=== PATIENT | male | born 1980 | race African-American/Black ===

== ENCOUNTER 2017-02-08 14:37 | Emergency (ER) | payer SELFPAY ==
[2017-02-08] MEDS ORDERED: LORATADINE 10 MG TABLET PO ONE (16:28)
[2017-02-08] MEDS ORDERED: GUAIFENESIN 600 MG TABLET.SA PO ONE (16:28)
[2017-02-08] MEDS ORDERED: PSEUDOEPHEDRINE HCL 30 MG TABLET PO ONE (16:28)
[2017-02-08] MEDS ORDERED: IBUPROFEN 600 MG TABLET PO ONE (16:28)
--- NOTE | 2017-02-08 16:28 | ER Document Report ---
ED Respiratory Problem - General Chief Complaint: Cold Symptoms Stated Complaint: COUGH,FEVER Time Seen by Provider: 02/08/17 16:18 Mode of Arrival: Ambulatory Information source: Patient Notes: 36-year-old. Male presents to ED for complaint of cough cold symptoms since Sunday. He states he went to [place] to see his girlfriend and she and her daughter both had cough and colds. That he flew back home and went to work yesterday. TRAVEL OUTSIDE OF THE [place] IN LAST 30 DAYS: No - HPI Patient complains to provider of: Cough Onset: Other - Sunday Duration: Continuous Initiating Event: URI Quality of pain: Achy - Related Data Allergies/Adverse Reactions: No Known Allergies Allergy (Verified 02/08/17 14:59) Home Medications: Current Home Medications No Home Medications 02/08/17 [History] Past Medical History - General Information source: Patient - Social History Smoking Status: Current Every Day Smoker Cigarette use (# per day): Yes Chew tobacco use (# tins/day): No Smoking Education Provided: Yes - less than 2 min Frequency of alcohol use: Occasional Drug Abuse: None Family History: None Patient has suicidal ideation: No Patient has homicidal ideation: No - Past Medical History Cardiac Medical History: Reports: None Pulmonary Medical History: Reports: None EENT Medical History: Reports: None Neurological Medical History: Reports: None Endocrine Medical History: Reports: None Renal/ Medical History: Reports: None Malignancy Medical History: Reports None GI Medical History: Reports: None Musculoskeltal Medical History: Reports None Skin Medical History: Reports None Psychiatric Medical History: Reports: Hx Depression Traumatic Medical History: Reports: None Infectious Medical History: Reports: None Past Surgical History: Reports: Hx Abdominal Surgery - Immunizations Hx Diphtheria, Pertussis, Tetanus Vaccination: No Review of Systems - Review of Systems Constitutional: No symptoms reported EENT: Nose discharge, Sinus discharge, Throat pain Cardiovascular: No symptoms reported Respiratory: No symptoms reported Gastrointestinal: No symptoms reported Genitourinary: No symptoms reported Male Genitourinary: No symptoms reported Musculoskeletal: No symptoms reported Skin: No symptoms reported Hematologic/Lymphatic: No symptoms reported Neurological/Psychological: No symptoms reported Physical Exam - Vital signs Vitals: Temp Pulse Resp BP Pulse Ox 98.4 F 87 16 130/95 H 97 02/08/17 14:57 02/08/17 14:57 02/08/17 14:57 02/08/17 14:57 02/08/17 14:57 Interpretation: Normal - General General appearance: Appears well, Alert - HEENT Head: Normocephalic, Atraumatic Eyes: Normal Pupils: PERRL Ears: Normal External canal: Normal Tympanic membrane: Normal Sinus: Normal Nasal: Purulent discharge, Swelling Mouth/Lips: Normal Pharynx: Post nasal drainage Neck: Normal - Respiratory Respiratory status: No respiratory distress Chest status: Nontender Breath sounds: Normal Chest palpation: Normal - Cardiovascular Rhythm: Regular Heart sounds: Normal auscultation Murmur: No - Abdominal Inspection: Normal Distension: No distension Bowel sounds: Normal Tenderness: Nontender Organomegaly: No organomegaly - Back Back: Normal, Nontender - Extremities General upper extremity: Normal inspection, Nontender, Normal color, Normal ROM , Normal temperature General lower extremity: Normal inspection, Nontender, Normal color, Normal ROM , Normal temperature, Normal weight bearing. No: Meredith's sign - Neurological Neuro grossly intact: Yes Cognition: Normal Orientation: AAOx4 Lito Coma Scale Eye Opening: Spontaneous Lito Coma Scale Verbal: Oriented Lito Coma Scale Motor: Obeys Commands Lito Coma Scale Total: 15 Speech: Normal Motor strength normal: LUE, RUE, LLE, RLE Sensory: Normal - Psychological Associated symptoms: Normal affect, Normal mood - Skin Skin Temperature: Warm Skin Moisture: Dry Skin Color: Normal Course - Re-evaluation Re-evalutation: 02/08/17 20:49 Presents with upper respiratory infection patient was discharged home with Sudafed Mucinex Claritin and ibuprofen. Patient instructed to request these from his pharmacist [id number]. - Vital Signs Vital signs: Temp Pulse Resp BP Pulse Ox 98.0 F 81 18 138/83 H 98 02/08/17 16:44 02/08/17 16:44 02/08/17 16:44 02/08/17 16:44 02/08/17 16:44 Discharge - Discharge Clinical Impression: URI (upper respiratory infection) Qualifiers: URI type: unspecified URI Qualified Code(s): J06.9 - Acute upper respiratory infection, unspecified Condition: Stable Disposition: HOME, SELF-CARE Instructions: Family Physicians / Practices Additional Instructions: UPPER RESPIRATORY ILLNESS: You have a viral infection of the respiratory passages -- a "cold." This common infection causes nasal congestion, drainage, and often sore throat and cough. It is highly contagious. The disease usually lasts about 10 to 14 days. There is no "cure" for the viral infection -- it must run its course. If there is a complication, such as bacterial infection in the nose, sinuses, middle ear, or bronchial tubes, antibiotics may be required. The antibiotics won't affect the virus. Drink plenty of fluids. A humidifier may help. An expectorant medication or decongestant may make you more comfortable. Use acetaminophen or ibuprofen for fever or aches. See the doctor if fever persists over two days, if there is any significant worsening of your symptoms, or if you simply fail to improve as expected. You have been given Claritin and Sudafed Mucinex and ibuprofen in the emergency room. These are good medicines. Take for your viral symptoms. Antiemetics did not help a virus. He can also use some salt and soda solution for gargling every 3-4 hours. Salt and soda solution 1 quart of water 1 tablespoon of salt 1 teaspoon of baking soda Mixed 3 ingredients together and boil for 1 minute Placed in a covered quart jar Use 1/2 ounce of cold solution to gargle 3 times a day Flonase nasal spray could also help your cough and cold symptoms DECONGESTANT MEDICATION: A decongestant medicine has been suggested. Often this medicine is combined in the same tablet with an antihistamine or expectorant. This type of medicine is helpful in treating a bad cold or sinus condition, as well as in treatment of the nasal congestion of hay fever. It is not of much benefit for lung infections. Decongestant medicines are related to stimulants. They can cause an increase in blood pressure and heart rate. Persons with heart disease and high blood pressure should not take decongestants without discussing this with the physician. If you develop palpitations, chest pain, headache, or tremors, stop the medicine and consult your physician. COUGH-SUPPRESSANT & EXPECTORANT MEDICATION: You are to use a cough medication as needed for relief of symptoms. This medicine is a combination of an expectorant (to make the mucous thinner and more easily "coughed up") and a cough suppressant (to reduce the frequency of coughing). The cough-suppressant medicine is related to narcotics. You may experience mild nausea and sleepiness. Some patients who are very sensitive to narcotics may have stomach pain from this medicine. Taking the medicine with food reduces these side effects. Do not drive or work with machinery until you know how this medicine affects you. The expectorant should have no side effects. Iodine-containing expectorants (such as organidin) should not be taken by persons with active thyroid disease unless approved by your doctor. Call the doctor if you develop shortness of breath, hives, rash, itching, lightheadedness, or severe nausea and vomiting. USE OF ACETAMINOPHEN (Tylenol): Acetaminophen may be taken for pain relief or fever control. It's much safer than aspirin, offering a wider range of "safe" dosages. It is safe during . Some brand names are Tylenol, Panadol, Datril, Anacin 3, Tempra, and Liquiprin. Acetaminophen can be repeated every four hours. The following are maximum recommended dosages: >89 pounds or adults 650 mg to 900 mg Acetaminophen can be repeated every four hours. Maximum dose not to exceed 4000 mg a day. SMOKING: If you smoke, you should stop smoking. The tar and chemicals in cigarette smoke are harmful. Smoking has been shown to cause: emphysema chronic bronchitis lung cancer mouth and throat cancer stomach and pancreas cancer premature aging defects In addition, smoking increases ear and lung infections in children of smokers. FOLLOW-UP CARE: If you have been referred to a physician for follow-up care, call the physician s office for an appointment as you were instructed or within the next two days. If you experience worsening or a significant change in your symptoms, notify the physician immediately or return to the Emergency Department at any time for re-evaluation. Forms: Elevated Blood Pressure, Smoking Cessation Education, Return to Work
[2017-02-08 16:45] VITALS: BP 138/83
== END 2017-02-08 16:46 | disposition home or self-care (01) ==
LOC: ER 14:37
DX: J06.9 Acute upper respiratory infection, unspecified (principal); R05 Cough; J34.89 Other specified disorders of nose and nasal sinuses; F17.210 Nicotine dependence, cigarettes, uncomplicated; Z71.6 Tobacco abuse counseling
CPT/HCPCS: 99283

== ENCOUNTER 2017-02-28 01:47 | Emergency (ER) | payer SELFPAY ==
[2017-02-28] MEDS ORDERED: PENICILLIN V POTASSIUM 500 MG TABLET PO ONE (04:21)
--- NOTE | 2017-02-28 04:23 | ER Document Report ---
ED General - General Chief Complaint: Toothache Stated Complaint: TOOTHACHE Time Seen by Provider: 02/28/17 03:48 Notes: Patient is a 36-year-old male who presents with complaint of toothache. Patient has pain over the right lower premolar. Says his tooth has been broken for a long time medication will get flared up and have infection. He says that he does not an appointment with the dentist as of yet but knows from past experiences that he has been on antibiotics for seeing the dentist so that they will actually do procedure to fix his tooth. He request antibiotics. He denies any significant facial swelling. No difficulty swallowing or breathing. No fevers. No other complaints at this time. TRAVEL OUTSIDE OF THE [place] IN LAST 30 DAYS: No - Related Data Allergies/Adverse Reactions: No Known Allergies Allergy (Verified 02/08/17 14:59) Past Medical History - Social History Smoking Status: Current Every Day Smoker Frequency of alcohol use: Social Drug Abuse: None Family History: None Patient has suicidal ideation: No Patient has homicidal ideation: No Renal/ Medical History: Denies: Hx Peritoneal Dialysis Psychiatric Medical History: Reports: Hx Depression Past Surgical History: Reports: Hx Abdominal Surgery - Immunizations Hx Diphtheria, Pertussis, Tetanus Vaccination: No Review of Systems - Review of Systems Notes: My Normal Review Basic REVIEW OF SYSTEMS: CONSTITUTIONAL : Denies fever, chills, or sweats. Denies recent illness. EENT: Tooth pain right lower jaw. RESPIRATORY: Denies cough, cold, or chest congestion. Denies shortness of breath, difficulty breathing, or wheezing. GASTROINTESTINAL: Denies abdominal pain. Denies nausea, vomiting, or diarrhea. Denies constipation. Last BM: MUSCULOSKELETAL: Denies neck or back pain or joint pain or swelling. SKIN: Denies rash or skin lesions. NEUROLOGICAL: Denies altered mental status or loss of consciousness. Denies headache. Denies weakness or paralysis or loss of use of either side. Denies problems with gait or speech. Denies sensory or motor loss. ALL OTHER SYSTEMS REVIEWED AND NEGATIVE. Physical Exam - Vital signs Vitals: Temp Pulse Resp BP Pulse Ox 98.8 F 71 18 123/80 98 02/28/17 02:09 02/28/17 02:09 02/28/17 02:09 02/28/17 02:09 02/28/17 02:09 - Notes Notes: General Appearance: Well nourished, alert, cooperative, no acute distress, no obvious discomfort. Well-appearing. Vitals: reviewed, See vital signs table. Head: no swelling or tenderness to the head Eyes: PERRL, EOMI, Conjuctiva clear Mouth: No decreasd moisture. Patient has a previously fractured right lower premolar with obvious dental decay. No gingival swelling. No evidence gingival abscess. No associated facial swelling. Neck: Supple, no neck tenderness Neuro: speech clear, oriented x 3, normal affect, responds appropriately to questions. Course - Re-evaluation Re-evalutation: 02/28/17 06:35 Patient will be placed on penicillin. He is encouraged to call his dentist make close follow-up appointment. Is encouraged to return to ER if he has fevers, facial swelling, any swelling below the jaw, difficulty breathing, or difficulty swallowing. Patient agrees with plan will be discharged home. Dictation of this chart was performed using voice recognition software; therefore, there may be some unintended grammatical errors. - Vital Signs Vital signs: Temp Pulse Resp BP Pulse Ox 98.8 F 74 16 118/56 L 98 02/28/17 02:09 02/28/17 04:28 02/28/17 04:28 02/28/17 04:28 02/28/17 04:28 Discharge - Discharge Clinical Impression: Pain, dental Condition: Good Disposition: HOME, SELF-CARE Instructions: Penicillin V K ([facility]), Toothache ([facility]) Additional Instructions: Please call a dentist for reevaluation within 3-5 days. Please return to the ER immediately if you have swelling below your jaw, fevers, difficulty breathing, or difficulty swallowing. Prescriptions: Penicillin V Potassium [Penicillin Vk 500 mg Tablet] 500 mg PO BID #14 tablet
[2017-02-28 04:28] VITALS: BP 118/56
== END 2017-02-28 04:27 | disposition home or self-care (01) ==
LOC: ER 01:47
DX: K08.89 Other specified disorders of teeth and supporting structures (principal); F17.200 Nicotine dependence, unspecified, uncomplicated
CPT/HCPCS: 99283

== ENCOUNTER 2017-05-01 20:27 | Emergency (ER) | payer SELFPAY ==
--- NOTE | 2017-05-01 23:28 | ER Document Report ---
ED Fall - General Chief Complaint: Fall Stated Complaint: FALL Time Seen by Provider: 05/01/17 23:22 Mode of Arrival: Ambulatory Information source: Patient Notes: Patient is a 36-year-old male who presents to the ER today for right foot pain after he fell down some stairs and landed wrong on the right foot 2 days ago. Patient denies any numbness or tingling, states that if he moves it a certain way it shoots pain up the foot and will even wake him up from sleep. He denies any swelling or bruising. TRAVEL OUTSIDE OF THE [place] IN LAST 30 DAYS: No - Related data Allergies/Adverse Reactions: No Known Allergies Allergy (Verified 02/08/17 14:59) Past Medical History - General Information source: Patient - Social History Smoking Status: Current Every Day Smoker Chew tobacco use (# tins/day): No Frequency of alcohol use: None Drug Abuse: None Family History: None Patient has suicidal ideation: No Patient has homicidal ideation: No Renal/ Medical History: Denies: Hx Peritoneal Dialysis Psychiatric Medical History: Reports: Hx Depression Past Surgical History: Reports: Hx Abdominal Surgery - Immunizations Hx Diphtheria, Pertussis, Tetanus Vaccination: No Review of Systems - Review of Systems Constitutional: No symptoms reported EENT: No symptoms reported Cardiovascular: No symptoms reported Respiratory: No symptoms reported Gastrointestinal: No symptoms reported Genitourinary: No symptoms reported Male Genitourinary: No symptoms reported Musculoskeletal: See HPI Skin: No symptoms reported Hematologic/Lymphatic: No symptoms reported Neurological/Psychological: No symptoms reported Physical Exam - Vital signs Vitals: Temp Pulse Resp BP Pulse Ox 98.5 F 83 16 134/86 H 99 05/01/17 20:38 05/01/17 20:38 05/01/17 20:38 05/01/17 20:38 05/01/17 20:38 - Notes Notes: PHYSICAL EXAMINATION: GENERAL: Well-appearing and in no acute distress. HEAD: Atraumatic, normocephalic. EYES: Pupils equal round and reactive to light, extraocular movements intact, sclera anicteric, conjunctiva are normal. NECK: Normal range of motion, supple without lymphadenopathy LUNGS: CTAB and equal. No wheezes rales or rhonchi. HEART: Regular rate and rhythm without murmurs ABDOMEN: Soft, no tenderness. No guarding, no rebound BACK: no vertebral tenderness, normal ROM GI/: no CVA tenderness EXTREMITIES: Normal range of motion, no pitting edema. No cyanosis. NEUROLOGICAL: Cranial nerves grossly intact. Normal sensory/motor exams. PSYCH: Normal mood, normal affect. SKIN: Warm, Dry, normal turgor, no rashes or lesions noted Course - Re-evaluation Re-evalutation: 05/02/17 00:44 X-ray negative for any acute pathology. Patient will receive Joe wrap and given crutches. - Vital Signs Vital signs: Temp Pulse Resp BP Pulse Ox 98.5 F 83 16 134/86 H 99 05/01/17 20:38 05/01/17 20:38 05/01/17 20:38 05/01/17 20:38 05/01/17 20:38 Discharge - Discharge Clinical Impression: Right foot injury Qualifiers: Encounter type: initial encounter Qualified Code(s): S99.921A - Unspecified injury of right foot, initial encounter Condition: Stable Disposition: HOME, SELF-CARE Additional Instructions: Return immediately for any new or worsening symptoms. Follow up with primary care provider, call tomorrow to make followup appointment. Prescriptions: Ibuprofen [Motrin 800 mg Tablet] 800 mg PO Q8H PRN #30 tab PRN Reason: Forms: Return to Work
--- NOTE | 2017-05-02 00:31 | RADIOLOGY REPORT (SQ) ---
EXAM DESCRIPTION: FOOT RIGHT COMPLETE CLINICAL HISTORY: foot injury, pain COMPARISON: None. FINDINGS: 3 views of the right foot. No acute fracture or dislocation. The tarsals and metatarsals are appropriately aligned. Normal osseous mineralization. Joint spaces preserved. IMPRESSION: 1. No acute fracture or dislocation.
[2017-05-02 01:28] VITALS: BP 106/50
== END 2017-05-02 01:25 | disposition home or self-care (01) ==
LOC: ER 20:27
DX: S99.921A Unspecified injury of right foot, initial encounter (principal); M79.671 Pain in right foot; W10.9XXA Fall (on) (from) unspecified stairs and steps, initial encounter; F17.200 Nicotine dependence, unspecified, uncomplicated
CPT/HCPCS: 99283

== ENCOUNTER 2018-06-03 18:00 | Emergency (ER) | payer SELFPAY ==
--- NOTE | 2018-06-03 19:02 | ER Document Report ---
ED Medical Screen (RME) - General Chief Complaint: Abscess Stated Complaint: LUMP ON NECK Time Seen by Provider: 06/03/18 18:48 Mode of Arrival: Ambulatory Information source: Patient, [facility] Records Notes: 37-year-old male presents with right-sided neck swelling, pain. Patient states that he has had a small area of swelling for approximately 6 months which rapidly grew in size over the last few days became painful and states that he expressed pus from the area. I have greeted and performed a rapid initial assessment of this patient. A comprehensive ED assessment and evaluation of the patient, analysis of test results and completion of medical decision making process we will be contacted by additional ED providers. PHYSICAL EXAMINATION: Vital signs reviewed GENERAL: Well-appearing, well-nourished and in no acute distress. LUNGS: No respiratory distress Musculoskeletal: Normal range of motion NEUROLOGICAL: Normal speech, normal gait. PSYCH: Normal mood, normal affect. SKIN: Warm, Dry, normal turgor, no rashes or lesions noted. TRAVEL OUTSIDE OF THE [place] IN LAST 30 DAYS: No - HPI Onset: Other Onset/Duration: Worse Quality of pain: Throbbing Severity: Moderate Associated Symptoms: denies: Fever, Nausea Exacerbated by: Denies Relieved by: Denies Similar symptoms previously: Yes Recently seen / treated by doctor: No - Related Data Smoking: Cigarettes Frequency of alcohol use: Occasional Drug Abuse: None Allergies/Adverse Reactions: No Known Allergies Allergy (Verified 02/08/17 14:59) Past Medical History - Social History Chew tobacco use (# tins/day): No Frequency of alcohol use: Occasional Drug Abuse: None Renal/ Medical History: Denies: Hx Peritoneal Dialysis Psychiatric Medical History: Reports: Hx Depression Past Surgical History: Reports: Hx Abdominal Surgery - Immunizations Hx Diphtheria, Pertussis, Tetanus Vaccination: No Physical Exam - Vital signs Vitals: Temp Pulse Resp BP Pulse Ox 98.4 F 77 16 129/79 H 98 06/03/18 18:07 06/03/18 18:07 06/03/18 18:07 06/03/18 18:07 06/03/18 18:07 Course - Vital Signs Vital signs: Temp Pulse Resp BP Pulse Ox 98.4 F 77 16 129/79 H 98 06/03/18 18:07 06/03/18 18:07 06/03/18 18:07 06/03/18 18:07 06/03/18 18:07
--- NOTE | 2018-06-03 19:50 | RADIOLOGY REPORT (SQ) ---
EXAM DESCRIPTION: CT SOFT TISSUE NECK WITH COMPLETED DATE/TIME: 06/03/2018 7:27 pm REASON FOR STUDY: Right-sided neck swelling COMPARISON: None. TECHNIQUE: Post IV contrasted scanning from skull base through lung apices with review of bone, soft tissue and lung windows. Reconstructed coronal and sagittal MPR images reviewed. All images stored on PACS. All CT scanners at this facility use dose modulation, iterative reconstruction, and/or weight based d osing when appropriate to reduce radiation dose to as low as reasonably achievable (ALARA). [facility]: Dose Right [facility]: CareDose [facility]: Dose Right [facility]: Teradose 4D [facility]: prettysecrets CONTRAST TYPE AND DOSE: contrast/concentration: Isovue 350.00 mg/ml; Total Contrast Delivered: 74.0 ml; Total Saline Delivered: 38.0 ml RENAL FUNCTION: None required. The patient is less than 50 years old. RADIATION DOSE: CT Rad equipment meets quality standard of care and radiation dose reduction techniq ues were employed. CTDIvol: 8.9 mGy. DLP: 307 mGy-cm. . LIMITATIONS: None. FINDINGS: SKULL BASE: Intact. MAJOR SALIVARY GLANDS: No solid or cystic masses. No inflammatory changes. LYMPHADENOPATHY: No adenopathy. MUCOSAL MASSES OR ASYMMETRY: No mucosal masses or asymmetry. LARYNX/CORDS: No abnormal findings. VASCULAR STRUCTURES: The major vessels are patent. LUNG APICES: Clear. BONES: Intact. THYROID: Normal size. No masses. PARANASAL SINUSES: Clear. OTHER: No other significant finding. IMPRESSION: NO SIGNIFICANT FINDING IN THE SOFT TISSUES OF THE NECK. TECHNICAL DOCUMENTATION: JOB ID: [id number] Quality ID # [id number]: Final reports with documentation of one or more dose reduction techniques (e.g., Au tomated exposure control, adjustment of the mA and/or kV according to patient size, use of iterative reconstruction technique) 2010 [employer]- All Rights Reserved Reading location - IP/workstation name: [email or web address]
[2018-06-03] MEDS ORDERED: HYDROCODONE/ACETAMINOPHEN 7.5-325 MG TABLET PO ONE (23:25)
[2018-06-03] MEDS ORDERED: CEPHALEXIN 500 MG CAPSULE PO ONE (23:28)
[2018-06-03] MEDS ORDERED: HYDROCODONE/ACETAMINOPHEN 5-325 MG (6 TAB/ER DISP) PO PRN (23:46)
--- NOTE | 2018-06-03 23:46 | ER Document Report ---
ED General - General Chief Complaint: Abscess Stated Complaint: LUMP ON NECK Time Seen by Provider: 06/03/18 18:48 Mode of Arrival: Ambulatory Notes: Patient is otherwise healthy 37-year-old male presents to the emergency department for swelling noted to the right side of his neck. Patient states he has noted slight swelling for the last 6 months with states the last 24 hours he has noticed an increase in the swelling and pain. This is why patient presents to the emergency department. Patient is denying any fever, denying any URI symptoms, denying any nausea, vomiting, diarrhea. Denying any MRSA history or s kin infections in the past. Patient's denying any IV drug use. Past medical history: None Medications: None Allergies: None TRAVEL OUTSIDE OF THE U.S. IN LAST 30 DAYS: No - Related Data Allergies/Adverse Reactions: No Known Allergies Allergy (Verified 06/03/18 23:19) Past Medical History - General Information source: Patient, [facility] Records - Social History Smoking Status: Current Every Day Smoker Chew tobacco use (# tins/day): No Frequency of alcohol use: Occasional Drug Abuse: None Family History: None Patient has suicidal ideation: No Patient has homicidal ideation: No Renal/ Medical History: Denies: Hx Peritoneal Dialysis Psychiatric Medical History: Reports: Hx Depression Past Surgical History: Reports: Hx Abdominal Surgery - Immunizations Hx Diphtheria, Pertussis, Tetanus Vaccination: No Review of Systems - Review of Systems Constitutional: No symptoms reported EENT: No symptoms reported Cardiovascular: No symptoms reported Respiratory: No symptoms reported Gastrointestinal: No symptoms reported Genitourinary: No symptoms reported Male Genitourinary: No symptoms reported Musculoskeletal: No symptoms reported Skin: See HPI Hematologic/Lymphatic: No symptoms reported Neurological/Psychological: No symptoms reported Physical Exam - Vital signs Vitals: Temp Pulse Resp BP Pulse Ox 98.4 F 77 16 129/79 H 98 06/03/18 18:07 06/03/18 18:07 06/03/18 18:07 06/03/18 18:07 06/03/18 18:07 - Notes Notes: GENERAL: Alert, interacts well. No acute distress. HEAD: Normocephalic, atraumatic. EYES: Pupils equal, round, and reactive to light. Extraocular movements intact. ENT: Oral mucosa moist, tongue midline. TMs intact, nonerythematous, nonbulging bilaterally. Pharynx within normal limits no palatal petechiae noted NECK: Full range of motion. Supple. Trachea midline. 1 cm x 1 cm indurated area noted right side of neck lateral to the patient's thyroid. No surrounding cellulitic tissue noted LUNGS: Clear to auscultation bilaterally, no wheezes, rales, or rhonchi. No respiratory distress. HEART: Regular rate and rhythm. No murmur ABDOMEN: Soft, non-tender. Non-distended. Bowel sounds present in all 4 quadrants. EXTREMITIES: Moves all 4 extremities spontaneously. No edema, normal radial and dorsalis pedis pulses bilaterally. No cyanosis. BACK: no cervical, thoracic, lumbar midline tenderness. No saddle anesthesia, normal distal neurovascular exam. NEUROLOGICAL: Alert and oriented x3. Normal speech. cranial nerves II through XII grossly intact. PSYCH: Normal affect, normal mood. SKIN: Warm, dry, normal turgor. Course - Re-evaluation Re-evalutation: 06/03/18 23:[address] read [address] Dr. Queen who is a radiologist. He states that he sees a small potential abscess formation over the area with which I am speaking of. Initial CT read was negative for any abnormalities. Patient's swelling is noted to be very hard to touch with no fluctuance noted. Discussed treatment with oral antibiotics, warm compresses and inevitable I&D should it become fluctuant. Discussed close follow-up with primary care provider or [place] [facility]. Also discussed return precautions for respiratory distress or any other concerning symptoms. Patient voices understanding is stable for discharge. - Vital Signs Vital signs: Temp Pulse Resp BP Pulse Ox 98.4 F 77 16 129/79 H 98 06/03/18 18:07 06/03/18 18:07 06/03/18 18:07 06/03/18 18:07 06/03/18 18:07 Discharge - Discharge Clinical Impression: Abscess Condition: Stable Disposition: HOME, SELF-CARE Instructions: Cephalexin ([facility]), Abscess ([facility]) Additional Instructions: as we discussed you have been seen and treated for the early stages of a pocket of infection to the right side of your neck. Please make sure you are applying warm compresses to bring this packet of infection to ahead.Please also take antibiotics as prescribed. Please make sure you follow-up with your primary care provider or [place] clinic within the next 24-48 hours for recheck. Please immediately return to the emergency room should you have any respiratory distress or any other concerning symptoms. Prescriptions: Cephalexin Monohydrate [Keflex 500 mg Capsule] 500 mg PO BID 7 Days #14 capsule Forms: Return to Work Referrals: [facility] [Provider Group] - Follow up as needed
[2018-06-04 00:26] VITALS: BP 134/84
== END 2018-06-04 00:25 | disposition home or self-care (01) ==
LOC: ER 18:00
DX: L02.11 Cutaneous abscess of neck (principal); F17.200 Nicotine dependence, unspecified, uncomplicated
CPT/HCPCS: 70491; 99283

== ENCOUNTER 2019-01-24 13:28 | Emergency (ER) | payer OTHER ==
--- NOTE | 2019-01-24 14:20 | ER Document Report ---
ED Medical Screen (RME) - General Chief Complaint: Elbow Injury Stated Complaint: ELBOW PAIN Time Seen by Provider: 01/24/19 14:15 Primary Care Provider: ROSY HEBERT [Primary Care Provider] - Follow up as needed Mode of Arrival: Ambulatory Information source: Patient Notes: 38-year-old male presented to ED for complaint of left elbow pain since July. States he did not have any injury at that time he does bowl. 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 Does not know of any injuries to this elbow. He states he went to the [facility] and they told him that he would need to go to the emergency room in the emergency room would refer him back to them and then they would refer him to [facility] specialist. He states in 2014 he had a lot of problems with his neck and shoulder on the same side. He states he was doing therapy and then was referred to pain management but his insurance would not cover the pain management because he was [place] [facility] [place]. He states he never did go to the pain management and then he moved to [place]. Patient smokes 15 cigarettes a day, alcohol weekly, no illicit drugs. I have greeted and performed a rapid initial assessment of this patient. A comprehensive ED assessment and evaluation of the patient, analysis of test results and completion of medical decision making process will be conducted by an additional ED providers. TRAVEL OUTSIDE OF THE U.S. IN LAST 30 DAYS: No - Related Data Allergies/Adverse Reactions: No Known Allergies Allergy (Verified 06/03/18 23:19) Past Medical History - Social History Chew tobacco use (# tins/day): No Frequency of alcohol use: Occasional Drug Abuse: None Renal/ Medical History: Denies: Hx Peritoneal Dialysis Psychiatric Medical History: Reports: Hx Depression Past Surgical History: Reports: Hx Abdominal Surgery - Immunizations Hx Diphtheria, Pertussis, Tetanus Vaccination: No Physical Exam - Vital signs Vitals: Temp Pulse Resp BP Pulse Ox 98.3 F 86 18 133/75 H 100 01/24/19 13:34 01/24/19 13:34 01/24/19 13:34 01/24/19 13:34 01/24/19 13:34 Course - Vital Signs Vital signs: Temp Pulse Resp BP Pulse Ox 98.3 F 86 18 133/75 H 100 01/24/19 13:34 01/24/19 13:34 01/24/19 13:34 01/24/19 13:34 01/24/19 13:34 Doctor's Discharge - Discharge Referrals: [facility]AL[facility],NO [Primary Care Provider] - Follow up as needed
--- NOTE | 2019-01-24 15:01 | RADIOLOGY REPORT (SQ) ---
EXAM DESCRIPTION: ELBOW LEFT OVER 2 VIEWS COMPLETED DATE/TIME: 01/24/2019 2:49 pm REASON FOR STUDY: pain in elbow COMPARISON: None. EXAM PARAMETERS: NUMBER OF VIEWS: Four views. TECHNIQUE: AP, lateral and oblique radiographic images acquired of the left elbow. LIMITATIONS: None. FINDINGS: MINERALIZATION: Normal. BONES: No acute fracture or dislocation. No worrisome bone lesions. JOINTS: No effusion. SOFT TISSUES: No significant soft tissue swelling. No radiopaque foreign body. OTHER: No other significant finding. IMPRESSION: NO FRACTURE. TECHNICAL DOCUMENTATION: JOB ID: [id number] [place]-72 2010 [employer]- All Rights Reserved Reading location - IP/workstation name: [email or web address]
--- NOTE | 2019-01-24 16:15 | ER Document Report ---
HPI - HPI Time Seen by Provider: 01/24/19 14:15 Pain Level: 4 Context: Patient is a 38-year-old male presents to the emergency department with a chief complaint of left elbow pain. Patient reports this is been present since July of this year. Patient reports there is no specific injury or fall back in July. 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 Patient also reports he bowls frequently at least 2 nights per week. Patient reports this does seem to aggravate the left elbow pain. Patient reports he has been using a compression dressing which does not seem to help that much. Patient reports he does use ibuprofen as needed for pain. Patient reports he was told by the [facility] to come to the emergency department for evaluation. He states that they will send him to the elbow specialist at [facility]. - CONSTITUTIONAL Constitutional: DENIES: Fever, Chills - REPRODUCTIVE Reproductive: DENIES: : - MUSCULOSKELETAL Musculoskeletal: REPORTS: Extremity pain Past Medical History - General Information source: Patient - Social History Smoking Status: Current Every Day Smoker Chew tobacco use (# tins/day): No Frequency of alcohol use: Occasional Drug Abuse: None Lives with: Family Family History: None Patient has suicidal ideation: No Patient has homicidal ideation: No - Past Medical History Cardiac Medical History: Reports: None Pulmonary Medical History: Reports: None EENT Medical History: Reports: None Neurological Medical History: Reports: None Endocrine Medical History: Reports: None Renal/ Medical History: Reports: None. Denies: Hx Peritoneal Dialysis Malignancy Medical History: Reports None GI Medical History: Reports: None Musculoskeletal Medical History: Reports None Skin Medical History: Reports None Psychiatric Medical History: Reports: Hx Depression Traumatic Medical History: Reports: None Infectious Medical History: Reports: None Past Surgical History: Reports: Hx Abdominal Surgery - Immunizations Hx Diphtheria, Pertussis, Tetanus Vaccination: No Vertical Provider Document - CONSTITUTIONAL Agree With Documented VS: Yes Exam Limitations: No Limitations General Appearance: No Apparent Distress - INFECTION CONTROL TRAVEL OUTSIDE OF THE [place] IN LAST 30 DAYS: No - HEENT HEENT: Atraumatic, Normocephalic, PERRLA - NECK Neck: Normal Inspection - RESPIRATORY Respiratory: Breath Sounds Normal, No Respiratory Distress - CARDIOVASCULAR Cardiovascular: Regular Rate, Regular Rhythm - GI/ABDOMEN Gastrointestinal: Abdomen Soft, Abdomen Non-Tender, Normal Bowel Sounds - MUSCULOSKELETAL/EXTREMETIES Musculoskeletal/Extremeties: FROM, Non-Tender, No Edema Notes: Patient has a full range of motion active and passive to the left elbow joint. Patient has good flexion extension of the left elbow joint. Patient has a strong brachial and radial pulse on the left. 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 There is no edema, ecchymosis or erythema noted to the elbow joint. There is no point tenderness to the olecranon. Patient does report tenderness with palpation to the medial aspect of the left elbow. Course - Re-evaluation Re-evalutation: 01/24/19 16:19 Patient symptoms consistent with a golfer's elbow which is a medial epicondylitis. Did inform the patient to rest, ice and elevate. I did inform the patient that without rest he just keeps irritating the elbow. Patient reports he does have to work and cannot rest. I did inform the patient to at least refrain from bowling until symptoms improve or he is able to follow-up with the elbow specialist at [facility]. Patient to call back up with the [facility] as they can possibly refer him to the elbow specialist. Patient verbalized understanding. Patient states he is going to try to use an elbow brace. - Vital Signs Vital signs: Temp Pulse Resp BP Pulse Ox 98.3 F 86 18 133/75 H 100 01/24/19 13:34 01/24/19 13:34 01/24/19 13:34 01/24/19 13:34 01/24/19 13:34 - Diagnostic Test Radiology reviewed: Reports reviewed Radiology results interpreted by me: 01/24/19 16:16 Elbow X-Ray 01/24/19 14:20 IMPRESSION: NO FRACTURE. Discharge - Discharge Clinical Impression: Chronic pain of left elbow, Medial epicondylitis of left elbow Condition: Stable Disposition: HOME, SELF-CARE Additional Instructions: Today you are seen in the emergency department for left elbow pain. Your x-ray was negative for any acute abnormality. *Your symptoms are consistent with a golfers elbow. This is a condition that causes pain with the tendons or foreign muscles attached to the bony bump on the inside of your elbow. This is usually damage and repeated stress that could be caused by your job and bowling. Treatment is usually rest, ice, elevating the extremity. It does appear that bowling and repetitive movement does cause the pain to get significantly worse. *I would follow-up with the [facility] to see if they are able to get you in with the elbow specialist at [facility]. In the meantime I can give you some orthopedic referrals in our area. *Continue to use ibuprofen as needed. Please note this can upset your stomach so please take with food. Taking too much of the ibuprofen can cause a bleeding of the stomach. Referrals: [facility] [Provider Group] - Follow up as needed ANGELO PITT DO [ACTIVE STAFF] - Follow up as needed
[2019-01-24 16:32] VITALS: BP 136/78
== END 2019-01-24 16:33 | disposition home or self-care (01) ==
LOC: ER 13:28
DX: M77.02 Medial epicondylitis, left elbow (principal); M25.522 Pain in left elbow; G89.29 Other chronic pain; F17.200 Nicotine dependence, unspecified, uncomplicated
CPT/HCPCS: 99283

== ENCOUNTER 2019-03-29 16:47 | Emergency (ER) | payer MEDICAID, OTHER ==
[2019-03-29] MEDS ORDERED: KETOROLAC TROMETHAMINE 60 MG/2 ML SDV IM ONE (18:07)
--- NOTE | 2019-03-29 18:08 | ER Document Report ---
HPI - HPI Time Seen by Provider: 03/29/19 17:55 Pain Level: 4 Context: Patient is a 38-year-old male who presents to the emergency department with a chief complaint of right rib pain. On he was playing with his son and was wrestling. He ended up falling on his right side. Since then he has been taking ibuprofen for the pain, but has had little relief. His last dose was at 1500 and he took 400 mg. - CONSTITUTIONAL Constitutional: DENIES: Fever, Chills - EENT EENT: DENIES: Sore Throat, Ear Pain - NEURO Neurology: DENIES: Headache, Weakness - CARDIOVASCULAR Cardiovascular: REPORTS: Chest pain - wall; right ribs - RESPIRATORY Respiratory: DENIES: Trouble Breathing, Coughing - GASTROINTESTINAL Gastrointestinal: DENIES: Abdominal Pain - REPRODUCTIVE Reproductive: DENIES: : - MUSCULOSKELETAL Musculoskeletal: DENIES: Extremity pain, Back Pain, Neck Pain - DERM Skin Color: Normal Skin Problems: None Past Medical History - General Information source: Patient - Social History Smoking Status: Current Every Day Smoker Chew tobacco use (# tins/day): No Frequency of alcohol use: None Drug Abuse: None Family History: None Patient has suicidal ideation: No Patient has homicidal ideation: No Renal/ Medical History: Denies: Hx Peritoneal Dialysis Psychiatric Medical History: Reports: Hx Depression Past Surgical History: Reports: Hx Abdominal Surgery - Immunizations Hx Diphtheria, Pertussis, Tetanus Vaccination: No Vertical Provider Document - CONSTITUTIONAL Agree With Documented VS: Yes Exam Limitations: No Limitations General Appearance: No Apparent Distress - INFECTION CONTROL TRAVEL OUTSIDE OF THE [place] IN LAST 30 DAYS: No - HEENT HEENT: Atraumatic, Normocephalic, PERRLA - NECK Neck: Normal Inspection - RESPIRATORY Respiratory: Breath Sounds Normal, No Respiratory Distress - CARDIOVASCULAR Cardiovascular: Regular Rate, Regular Rhythm, No Murmur - MUSCULOSKELETAL/EXTREMETIES Musculoskeletal/Extremeties: FROM, Tender - Right lateral ribs - NEURO Level of Consciousness: Awake, Alert, Appropriate Motor/Sensory: No Motor Deficit, No Sensory Deficit - DERM Integumentary: Warm, Dry, No Rash Course - Re-evaluation Re-evalutation: 03/29/19 19:26 Patient has a nondisplaced fracture of his ninth rib on the right side. No pneumothorax or other acute abnormalities noted. Patient will be sent home with Zwolle, as he has not had any relief of his symptoms with ibuprofen. Did him to continue his ibuprofen for the anti-inflammatory effects. He will be sent home with an incentive spirometer to help prevent pneumonia. He is in agreement with this plan. Follow-up precautions were given. Verbal discharge instructions were given to the patient. They verbalized understanding. They are stable for discharge. - Vital Signs Vital signs: Temp Pulse Resp BP Pulse Ox 97.9 F 70 16 127/88 H 100 03/29/19 16:55 03/29/19 16:55 03/29/19 16:55 03/29/19 16:55 03/29/19 16:55 Discharge - Discharge Clinical Impression: Rib fracture Qualifiers: Encounter type: initial encounter Rib fracture type: single rib Fracture type: closed Laterality: right Qualified Code(s): S22.31XA - Fracture of one rib, right side, initial encounter for closed fracture Condition: Stable Disposition: HOME, SELF-CARE Additional Instructions: You were seen today in the emergency department for rib pain. You have a fracture. Rib fractures will usually heal on their own. Please use the incentive spirometer given to you to prevent pneumonia. Please follow-up with your primary care provider regards to this visit. You are also being sent home with Zwolle, medication for pain. Please only take this for extreme pain. Continue ibuprofen 600 mg every 6 hours for your pain. Prescriptions: Hydrocodone/Acetaminophen [Zwolle 5-325 mg Tablet] 1 tab PO Q4H PRN #15 tablet PRN Reason: Referrals: [facility] [Primary Care Provider] - Follow up in 3-5 days
--- NOTE | 2019-03-29 18:39 | RADIOLOGY REPORT (SQ) ---
EXAM DESCRIPTION: RIBS RIGHT W/PA CHEST COMPLETED DATE/TIME: 03/29/2019 6:19 pm REASON FOR STUDY: fall; rib pain COMPARISON: None. TECHNIQUE: Frontal view of the chest and additional views of the right ribs acquired. NUMBER OF VIEWS: Five view. LIMITATIONS: None. FINDINGS: FRONTAL CXR: No pneumothorax. No pleural effusion. No atelectasis or infiltrates. RIBS: Nondisplaced fracture of the lateral right 9th rib. No lytic or blastic bony lesions. OTHER: No other significant finding. IMPRESSION: Nondisplaced fracture of the lateral right 9th rib. No pneumothorax. COMMENT: SITE OF TRAUMA/COMPLAINT MARKED/STAMP COMPLETED: YES. TECHNICAL DOCUMENTATION: JOB ID: [id number] [employer]- All Rights Reserved Reading location - IP/workstation name: [email or web address]
[2019-03-29 19:35] VITALS: BP 153/85
== END 2019-03-29 19:55 | disposition home or self-care (01) ==
LOC: ER 16:47
DX: S22.31XA Fracture of one rib, right side, initial encounter for closed fracture (principal); W19.XXXA Unspecified fall, initial encounter; Y93.72 Activity, wrestling; F17.200 Nicotine dependence, unspecified, uncomplicated
CPT/HCPCS: 99283; 71101; J1885